=== PATIENT | male | born 1970 | race Caucasian/White ===

== ENCOUNTER → 2019-08-10 | Outpatient (CLI) | payer BC | LOC: RAD 07:43 | DX: M47.816 Spondylosis without myelopathy or radiculopathy, lumbar region (principal); M47.812 Spondylosis without myelopathy or radiculopathy, cervical region ==

== ENCOUNTER 2019-09-06 11:30 | Outpatient (RCR) | payer BC | END 2019-09-06 12:00 | disposition still patient (30) | LOC: PT 11:30 | DX: M54.2 Cervicalgia (principal); R20.0 Anesthesia of skin ==